=== PATIENT | female | born 1970 ===

== ENCOUNTER 2018-03-07 08:12 | Outpatient (CLI) | payer OTHER | END 2018-03-07 08:15 | disposition home or self-care (01) | LOC: SONOGRAMA 08:12 | DX: E04.2 Nontoxic multinodular goiter (principal) ==

== ENCOUNTER 2018-10-24 09:03 | Outpatient (CLI) | payer OTHER | END 2018-10-25 06:31 | disposition home or self-care (01) | LOC: RX STUDY 09:03 | DX: N39.0 Urinary tract infection, site not specified (principal); R10.2 Pelvic and perineal pain; K59.09 Other constipation; K21.0 Gastro-esophageal reflux disease with esophagitis; Z12.73 Encounter for screening for malignant neoplasm of ovary; Z12.11 Encounter for screening for malignant neoplasm of colon; R13.19 Other dysphagia ==